=== PATIENT | male | born 1995 | race African-American/Black ===

== ENCOUNTER 2025-02-15 12:13 | Emergency (ER) | payer OTHER, SELFPAY ==
[2025-02-15 12:33] VITALS: BP 125/65; PULSE 72; RESP 19; TEMP 36.6; O2SAT 100
--- NOTE | 2025-02-15 12:52 | ED_ITS ---
HPI - Skin/Abscess/Foreign Bdy General Chief complaint: Skin/Abscess/Foreign Body Stated complaint: Rash/ Skin Issues Source: patient Mode of arrival: ambulatory Limitations: no limitations History of Present Illness HPI narrative: Patient is a 29-year-old male who presents to the clinic with allergic reaction to his left arm. He states that he works at [employer] and was handling a box and noticed a rash afterwards. He has been taking Benadryl [id number]. It has been helping some. Denies any shortness of breath, difficulty breathing, nausea, vomiting, and diarrhea. Related Data Home Medications ?Medication ?Instructions ?Recorded ?Confirmed ?Last Taken ?Type bupropion HCl PO 02/15/25 Unknown History hydroxyzine HCl .ROUTE 02/15/25 Unknown History methocarbamol .ROUTE 02/15/25 Unknown History sertraline .ROUTE 02/15/25 Unknown History Allergies Allergy/AdvReac Type Severity Reaction Status Date / Time No Known Allergies Allergy Verified 02/15/25 12:41 Review of Systems Review of Systems: CONSTITUTIONAL: Denies body aches, fever, chills, or sweats. EYES: Denies visual changes, redness, or discharge. ENT: Denies rhinorrhea, congestion CARDIOVASCULAR: Denies chest pain, palpitations, or edema. RESPIRATORY: Denies cough or dyspnea. GASTROINTESTINAL: Denies abdominal pain, nausea, vomiting, or diarrhea. SKIN: ?Rash from left hand to left elbow. MUSCULOSKELETAL: Denies back pain, joint pain, or myalgia. NEUROLOGIC: Denies headache, numbness, tingling, or weakness. All systems reviewed & are unremarkable except as noted in HPI and below PMFSH Comments At time of signature, I have reviewed and agree with nursing past medical, surgical, social and family history unless otherwise noted. Please see nursing chart for further information. There is no relevant family history pertinent to the presenting complaint. Exam Narrative: GENERAL: Well-appearing HEAD: Normocephalic, atraumatic. EYES: ?conjunctivae clear, and EOMI. ENT: Mucous membranes moist. Oropharynx without edema, erythema or lesions. NECK: Supple. No lymphadenopathy CHEST: Clear to auscultation. HEART: Regular rate and rhythm. SKIN: Warm, dry. Erythematous papules noted to left hand. NEURO: ?Alert and oriented x3.? Course Course Level of Care: Express Care Visit Vital Signs Vital signs: Vital Signs Temperature 98 F 02/15/25 12:33 Pulse Rate 72 02/15/25 12:33 Respiratory Rate 19 02/15/25 12:33 Blood Pressure 125/65 02/15/25 12:33 Pulse Oximetry 100 02/15/25 12:33 Oxygen Delivery Room Air 02/15/25 12:33 Temperature 98 F 02/15/25 12:33 Pulse Rate 72 02/15/25 12:33 Respiratory Rate 19 02/15/25 12:33 Blood Pressure 125/65 02/15/25 12:33 Pulse Oximetry 100 02/15/25 12:33 Oxygen Delivery Room Air 02/15/25 12:33 Reviewed MDM - Skin/Abscess/Foreign Bdy MDM Narrative Medical decision making narrative: Discussed physical exam findings. Steroids and pepcid given for allergic reaction. Advised supportive measures and signs/symptoms to go to the ER. Pt is appropriate for outpatient treatment and follow up. Differential Diagnosis Differential diagnosis: Likely eczema, insect bites, contact dermatitis and other Critical Care Time Critical Care Time Critical Care Time: No Discharge Plan Discharge Clinical Impression: Allergic reaction Qualifiers: Encounter type: initial encounter Qualified Code(s): T78.40XA - Allergy, unspecified, initial encounter Patient Disposition: Home Condition: Stable Instructions: General Allergic Reaction (ED) Additional Instructions: Take steroids and Pepcid as directed. Benadryl every 8 hours as needed. Cool compresses to the sites of itching, avoid hot water. Avoid scratching to reduce the risk of infection Follow up with your primary care provider as needed in 1 week Go to the ER for worsening symptoms or concerns (lip, tongue, throat swelling/itching, trouble breathing etc) Patient Language: French Prescriptions: New prednisone 10 mg tablet See Rx Instructions .ROUTE .COMPLEX Qty: 16 0RF Rx Instructions: Take 4 tabs for one day, 3 tabs for 2 days, 2 tabs for 2 days, 1 tab for 2 days. famotidine [Pepcid] 20 mg tablet 20 mg PO BID 7 Days Qty: 14 0RF No Action bupropion HCl PO hydroxyzine HCl .ROUTE sertraline .ROUTE methocarbamol .ROUTE Follow-up/Referrals: PHYSICIAN,ELECTRICAL REPAIRER [Primary Care Provider] - Stand Alone Forms: Work/School Release IP Time of Disposition: 12:58
== END 2025-02-15 13:05 | disposition home or self-care (01) ==
DX: T78.40XA Allergy, unspecified, initial encounter (principal); R21 Rash and other nonspecific skin eruption; Z79.899 Other long term (current) drug therapy
CPT/HCPCS: 99203; G0463